=== PATIENT | female | born 1930 | race African-American/Black ===

== ENCOUNTER 2017-06-09 09:48 | Inpatient (IN) | payer MEDICARE, OTHER ==
[2017-06-09 10:36] LABS: ADD MAN DIFF? NO
[2017-06-09 10:40] LABS: ABNORMAL IP MESSAGE 1; BASOPHILS % 0.2 % (0.0-2.0); EOSINOPHILS # 0.2 10^3/ul (0.0-0.5); EOSINOPHILS % 1.4 % (0.0-7.0); HEMATOCRIT 25.3 % (37.0-47.0); HEMOGLOBIN 8.4 g/dl (12.0-16.0); LYMPHOCYTES # 2.2 10^3/ul (0.8-2.9); LYMPHOCYTES % 14.1 % (15.0-51.0); MEAN CORPUSCULAR HEMOGLOBIN 32.9 pg (29.0-33.0); MEAN CORPUSCULAR HGB CONC 33.2 g/dl (32.0-37.0); MEAN CORPUSCULAR VOLUME 99.2 fl (82.0-101.0); MEAN PLATELET VOLUME 9.6 fl (7.4-10.4); MONOCYTES % 13.1 % (0.0-11.0); NEUTROPHIL # 10.9 10^3/ul (1.6-7.5); NEUTROPHILS % 70.5 % (39.0-77.0); PLATELET COUNT 439 10^3/UL (140-415); RED BLOOD COUNT 2.55 10^6/ul (4.20-5.40); RED CELL DISTRIBUTION WIDTH 13.3 % (11.5-14.5)
[2017-06-09 10:40] LABS: WHITE BLOOD COUNT 15.5 10^3/ul (4.8-10.8)
[2017-06-09 10:44] LABS: POSITIVE DIFF @See below
[2017-06-09 10:53] LABS: LACTIC ACID 1.5 mmol/L (0.5-2.0)
[2017-06-09 10:59] LABS: ALANINE AMINOTRANSFERASE 27 IU/L (13-69); ALBUMIN 3.5 g/dl (3.3-4.9); ALBUMIN/GLOBULIN RATIO 0.87; ALKALINE PHOSPHATASE 112 IU/L (42-121); ANION GAP 11 (8-16); ASPARTATE AMINO TRANSFERASE 26 IU/L (15-46); BLOOD UREA NITROGEN 34 mg/dl (7-20); CALCIUM 9.2 mg/dl (8.4-10.2); CARBON DIOXIDE 28 mmol/L (21-31); CHLORIDE 100 mmol/L (97-110); CREATININE 1.16 mg/dl (0.44-1.00); GLUCOSE 114 mg/dl (70-220); POTASSIUM 4.8 mmol/L (3.5-5.1); SODIUM 134 mmol/L (135-144); TOTAL PROTEIN 7.5 g/dl (6.1-8.1)
[2017-06-09 11:04] LABS: INR 1.11; PROTIME 14.5 Sec (11.9-14.9); PT RATIO 1.1
[2017-06-09 11:05] LABS: PARTIAL THROMBOPLASTIN TIME 30.9 Sec (25.0-35.0)
[2017-06-09] MEDS: CEFEPIME 2GM/50 ML (PMX) 50 ML IVPB (11:19)
[2017-06-09] MEDS: SODIUM CHLORIDE 0.9% 1L BAG IV* (11:20)
[2017-06-09] MEDS ORDERED: ACETAMINOPHEN 325 MG TAB PO (12:00)
[2017-06-09] MEDS ORDERED: ONDANSETRON 4 MG INJ IV (12:00)
[2017-06-09] MEDS: VANCOMYCIN 1 GM (PMX) 250 ML IVPB (12:23)
[2017-06-09 12:37] LABS: ADD UMIC YES; UR ASCORBIC ACID 40 mg/dL (NEGATIVE); UR BACTERIA FEW /HPF (NONE SEEN); UR BILIRUBIN (Dip) NEGATIVE (NEGATIVE); UR BLOOD (Dip) 3+ mg/dL (NEGATIVE); UR BUDDING YEAST MANY /HPF (NONE SEEN); UR CLARITY CLOUDY (CLEAR); UR COLOR AMBER (YELLOW); UR GLUCOSE (Dip) NEGATIVE (NEGATIVE); UR KETONES (Dip) NEGATIVE (NEGATIVE); UR LEUKOCYTE ESTERASE (Dip) 3+ Leu/ul (NEGATIVE); UR MUCUS FEW /HPF (NONE SEEN); UR NITRITE (Dip) NEGATIVE (NEGATIVE); UR NONSQUAMOUS EPITHELIAL CELL 1 /HPF (NONE SEEN); UR RBC > 182 /HPF (0-5); UR SPECIFIC GRAVITY (Dip) 1.013 (1.003-1.030); UR SQUAMOUS EPITHELIAL CELL FEW /HPF (FEW); UR TOTAL PROTEIN (Dip) 1+ mg/dl (NEGATIVE); UR UROBILINOGEN (Dip) NEGATIVE (NEGATIVE); UR WBC 129 /HPF (0-5)
[2017-06-09 13:22] LABS: ERYTHROCYTE SEDIMENTATION RATE 135 mm/Hr (0-30)
[2017-06-09 14:55] LABS: LACTIC ACID 1.4 mmol/L (0.5-2.0)
[2017-06-09] MEDS ORDERED: VANCOMYCIN IV PER PHARMACY XX (16:30)
[2017-06-09] MEDS ORDERED: ACETAMINOPHEN 325 MG TAB GTB (16:30)
[2017-06-09] MEDS ORDERED: traMADol 50 MG TAB GTB (16:30)
[2017-06-09] MEDS ORDERED: PENDING SANTYL ORDER FOR WOUND CARE XX (17:00)
[2017-06-09] MEDS: SOD CHLORIDE 0.9% 1,000 ML IV (17:14)
[2017-06-09 18:00] LABS: LACTIC ACID 1.3 mmol/L (0.5-2.0)
[2017-06-09] MEDS ORDERED: FERROUS SULFATE (EC) 325 MG TAB PO (21:00)
[2017-06-09] MEDS ORDERED: DOXERCALCIFEROL 0.5 MCG GTB (21:00)
[2017-06-09] MEDS ORDERED: NON-FORMULARY/PATIENT OWN MED (Protein Supplement (Promod) 30 ML) PO (21:00)
[2017-06-09] MEDS ORDERED: DIVALPROEX (EC) 250 MG TAB PO (21:00)
[2017-06-09] MEDS: FERROUS SULFATE 60 MG/ML 5ML CUP GTB (21:35)
[2017-06-09] MEDS: MEMANTINE 10 MG TAB GTB (21:35)
[2017-06-09] MEDS: DOCUSATE SODIUM 10 MG/ML (10ML CUP) GTB (21:35)
[2017-06-09] MEDS: DONEPEZIL 10 MG TAB GTB (21:35)
[2017-06-09] MEDS: FLUCONAZOLE 200 MG/NS (PMX) 100 ML IVPB (21:35)
[2017-06-09] MEDS: ATORVASTATIN 20 MG TAB PO (21:35)
[2017-06-09] MEDS: PIPER-TAZO 2.25 GM (PMX) 50 ML IVPB (23:18)
[2017-06-09] MEDS: DIVALPROEX SPRINKLE 125 MG CAP GTB (23:19)
[2017-06-10] MEDS: SOD CHLORIDE 0.9% 1,000 ML IV ×2 (02:30→05:45)
[2017-06-10] MEDS: PIPER-TAZO 2.25 GM (PMX) 50 ML IVPB ×3 (05:45→21:34)
[2017-06-10 06:07] LABS: ADD MAN DIFF? NO
[2017-06-10 06:39] LABS: INR 1.23; PROTIME 15.7 Sec (11.9-14.9); PT RATIO 1.2
[2017-06-10 07:01] LABS: ANION GAP 9 (8-16); BLOOD UREA NITROGEN 29 mg/dl (7-20); CARBON DIOXIDE 26 mmol/L (21-31); CHLORIDE 108 mmol/L (97-110); GLUCOSE 116 mg/dl (70-220); MAGNESIUM 1.8 mg/dl (1.7-2.5); POTASSIUM 4.6 mmol/L (3.5-5.1); SODIUM 138 mmol/L (135-144)
[2017-06-10 07:44] LABS: CALCIUM 8.6 mg/dl (8.4-10.2)
[2017-06-10 08:23] LABS: ABNORMAL IP MESSAGE 1; BASOPHILS % 0.2 % (0.0-2.0); EOSINOPHILS # 0.3 10^3/ul (0.0-0.5); EOSINOPHILS % 2.4 % (0.0-7.0); HEMATOCRIT 25.4 % (37.0-47.0); HEMOGLOBIN 8.3 g/dl (12.0-16.0); LYMPHOCYTES # 1.7 10^3/ul (0.8-2.9); LYMPHOCYTES % 13.9 % (15.0-51.0); MEAN CORPUSCULAR HEMOGLOBIN 33.1 pg (29.0-33.0); MEAN CORPUSCULAR HGB CONC 32.7 g/dl (32.0-37.0); MEAN CORPUSCULAR VOLUME 101.2 fl (82.0-101.0); MEAN PLATELET VOLUME 9.3 fl (7.4-10.4); MONOCYTE # 1.6 10^3/ul (0.3-0.9); MONOCYTES % 12.9 % (0.0-11.0); NEUTROPHIL # 8.6 10^3/ul (1.6-7.5); NEUTROPHILS % 70.2 % (39.0-77.0); PLATELET COUNT 426 10^3/UL (140-415); RED BLOOD COUNT 2.51 10^6/ul (4.20-5.40); RED CELL DISTRIBUTION WIDTH 13.2 % (11.5-14.5)
[2017-06-10 08:23] LABS: WHITE BLOOD COUNT 12.3 10^3/ul (4.8-10.8)
[2017-06-10 08:29] LABS: POSITIVE DIFF @See below
[2017-06-10] MEDS: FERROUS SULFATE 60 MG/ML 5ML CUP GTB ×3 (08:46→21:34)
[2017-06-10] MEDS: DOCUSATE SODIUM 10 MG/ML (10ML CUP) GTB ×2 (08:46→21:34)
[2017-06-10] MEDS: ASPIRIN 81 MG TAB GTB (08:47)
[2017-06-10] MEDS: DIVALPROEX SPRINKLE 125 MG CAP GTB ×2 (08:47→21:34)
[2017-06-10] MEDS: MULTIVITAMINS THERAPEUTIC TAB GTB (08:47)
[2017-06-10] MEDS: ASCORBIC ACID 250 MG TAB GTB (08:47)
[2017-06-10] MEDS: MEMANTINE 10 MG TAB GTB ×2 (08:47→21:34)
[2017-06-10] MEDS: FOLIC ACID 1 MG TAB GTB (08:48)
[2017-06-10] MEDS: CALCIUM CARBONATE 1.25 GM TAB GTB (08:48)
[2017-06-10] MEDS: VANCOMYCIN 500MG/NS (PMX) 100 ML IVPB (16:45)
[2017-06-10] MEDS: FLUCONAZOLE 200 MG/NS (PMX) 100 ML IVPB (17:48)
[2017-06-10] MEDS: ALENDRONATE 70 MG TAB PO (19:00)
[2017-06-10] MEDS: ATORVASTATIN 20 MG TAB PO (21:34)
[2017-06-10] MEDS: DONEPEZIL 10 MG TAB GTB (21:34)
[2017-06-11] MEDS: PIPER-TAZO 2.25 GM (PMX) 50 ML IVPB ×3 (06:11→21:29)
[2017-06-11 07:11] LABS: ADD MAN DIFF? NO
[2017-06-11 07:21] LABS: BASOPHILS % 0.2 % (0.0-2.0); EOSINOPHILS # 0.4 10^3/ul (0.0-0.5); EOSINOPHILS % 3.6 % (0.0-7.0); HEMATOCRIT 24.5 % (37.0-47.0); LYMPHOCYTES # 1.7 10^3/ul (0.8-2.9); LYMPHOCYTES % 17.1 % (15.0-51.0); MEAN CORPUSCULAR HEMOGLOBIN 33.1 pg (29.0-33.0); MEAN CORPUSCULAR HGB CONC 32.7 g/dl (32.0-37.0); MEAN CORPUSCULAR VOLUME 101.2 fl (82.0-101.0); MEAN PLATELET VOLUME 9.7 fl (7.4-10.4); MONOCYTE # 1.1 10^3/ul (0.3-0.9); MONOCYTES % 11.3 % (0.0-11.0); NEUTROPHIL # 6.6 10^3/ul (1.6-7.5); NEUTROPHILS % 67.2 % (39.0-77.0); PLATELET COUNT 411 10^3/UL (140-415); RED BLOOD COUNT 2.42 10^6/ul (4.20-5.40); RED CELL DISTRIBUTION WIDTH 13.3 % (11.5-14.5)
[2017-06-11 07:21] LABS: WHITE BLOOD COUNT 9.8 10^3/ul (4.8-10.8)
[2017-06-11 07:37] LABS: ANION GAP 12 (8-16); BLOOD UREA NITROGEN 25 mg/dl (7-20); CALCIUM 8.7 mg/dl (8.4-10.2); CARBON DIOXIDE 25 mmol/L (21-31); CHLORIDE 108 mmol/L (97-110); CREATININE 1.06 mg/dl (0.44-1.00); GLUCOSE 88 mg/dl (70-220); POTASSIUM 4.8 mmol/L (3.5-5.1); SODIUM 140 mmol/L (135-144)
[2017-06-11] MEDS: ASCORBIC ACID 250 MG TAB GTB (08:43)
[2017-06-11] MEDS: DOCUSATE SODIUM 10 MG/ML (10ML CUP) GTB ×2 (08:43→21:16)
[2017-06-11] MEDS: DIVALPROEX SPRINKLE 125 MG CAP GTB ×2 (08:43→21:17)
[2017-06-11] MEDS: FOLIC ACID 1 MG TAB GTB (08:43)
[2017-06-11] MEDS: FERROUS SULFATE 60 MG/ML 5ML CUP GTB ×3 (08:43→21:16)
[2017-06-11] MEDS: MEMANTINE 10 MG TAB GTB ×2 (08:43→21:17)
[2017-06-11] MEDS: MULTIVITAMINS THERAPEUTIC TAB GTB (08:44)
[2017-06-11] MEDS: CALCIUM CARBONATE 1.25 GM TAB GTB (08:47)
[2017-06-11] MEDS: ASPIRIN 81 MG TAB GTB (08:53)
[2017-06-11] MEDS ORDERED: MUPIROCIN 2% 22 GM OINT TOP (10:00)
[2017-06-11] MEDS: MUPIROCIN 2% 22 GM OINT TOP ×2 (12:10→21:17)
[2017-06-11] MEDS: ENOXAPARIN 30 MG/0.3 ML SYG SC (14:30)
[2017-06-11] MEDS: LACTOBACILLUS RHAMNOSUS CAP GTB ×2 (14:30→21:16)
[2017-06-11] MEDS: VANCOMYCIN 500MG/NS (PMX) 100 ML IVPB (16:10)
[2017-06-11] MEDS: FLUCONAZOLE 200 MG/NS (PMX) 100 ML IVPB (17:54)
[2017-06-11] MEDS: DONEPEZIL 10 MG TAB GTB (21:16)
[2017-06-11] MEDS: ATORVASTATIN 20 MG TAB PO (21:16)
[2017-06-12] MEDS ORDERED: COLLAGENASE 30 GM TUBE TOP (02:30)
[2017-06-12] MEDS: PIPER-TAZO 2.25 GM (PMX) 50 ML IVPB ×2 (06:12→14:41)
[2017-06-12 07:12] LABS: ADD MAN DIFF? NO
[2017-06-12 07:15] LABS: WHITE BLOOD COUNT 9.3 10^3/ul (4.8-10.8)
[2017-06-12 07:15] LABS: BASOPHILS % 0.3 % (0.0-2.0); EOSINOPHILS # 0.3 10^3/ul (0.0-0.5); EOSINOPHILS % 3.4 % (0.0-7.0); HEMATOCRIT 25.8 % (37.0-47.0); HEMOGLOBIN 8.3 g/dl (12.0-16.0); LYMPHOCYTES # 1.8 10^3/ul (0.8-2.9); LYMPHOCYTES % 18.7 % (15.0-51.0); MEAN CORPUSCULAR HEMOGLOBIN 32.5 pg (29.0-33.0); MEAN CORPUSCULAR HGB CONC 32.2 g/dl (32.0-37.0); MEAN CORPUSCULAR VOLUME 101.2 fl (82.0-101.0); MEAN PLATELET VOLUME 9.8 fl (7.4-10.4); NEUTROPHIL # 6.2 10^3/ul (1.6-7.5); NEUTROPHILS % 66.2 % (39.0-77.0); PLATELET COUNT 428 10^3/UL (140-415); RED BLOOD COUNT 2.55 10^6/ul (4.20-5.40); RED CELL DISTRIBUTION WIDTH 13.3 % (11.5-14.5)
[2017-06-12 07:40] LABS: HEMOGLOBIN A1C 5.3 % (0-5.9)
[2017-06-12 08:05] LABS: ALANINE AMINOTRANSFERASE 21 IU/L (13-69); ALBUMIN 3.1 g/dl (3.3-4.9); ALBUMIN/GLOBULIN RATIO 0.73; ALKALINE PHOSPHATASE 108 IU/L (42-121); ANION GAP 12 (8-16); ASPARTATE AMINO TRANSFERASE 29 IU/L (15-46); BLOOD UREA NITROGEN 21 mg/dl (7-20); CALCIUM 9.2 mg/dl (8.4-10.2); CARBON DIOXIDE 25 mmol/L (21-31); CHLORIDE 105 mmol/L (97-110); CREATININE 1.02 mg/dl (0.44-1.00); GLUCOSE 108 mg/dl (70-220); POTASSIUM 4.5 mmol/L (3.5-5.1); SODIUM 137 mmol/L (135-144); TOTAL PROTEIN 7.3 g/dl (6.1-8.1)
[2017-06-12 08:08] LABS: VALPROATE 28 ug/ml (50-100)
[2017-06-12] MEDS: MUPIROCIN 2% 22 GM OINT TOP ×2 (08:51→21:07)
[2017-06-12] MEDS: LACTOBACILLUS RHAMNOSUS CAP GTB ×2 (08:52→21:03)
[2017-06-12] MEDS: DIVALPROEX SPRINKLE 125 MG CAP GTB ×2 (08:52→21:01)
[2017-06-12] MEDS: CALCIUM CARBONATE 1.25 GM TAB GTB (08:52)
[2017-06-12] MEDS: MULTIVITAMINS THERAPEUTIC TAB GTB (08:52)
[2017-06-12] MEDS: MEMANTINE 10 MG TAB GTB ×2 (08:52→21:03)
[2017-06-12] MEDS: FOLIC ACID 1 MG TAB GTB (08:52)
[2017-06-12] MEDS: DOCUSATE SODIUM 10 MG/ML (10ML CUP) GTB ×2 (08:53→21:01)
[2017-06-12] MEDS: ASPIRIN 81 MG TAB GTB (08:53)
[2017-06-12] MEDS: ASCORBIC ACID 250 MG TAB GTB (08:53)
[2017-06-12] MEDS: FERROUS SULFATE 60 MG/ML 5ML CUP GTB ×3 (08:53→21:01)
[2017-06-12] MEDS: COLLAGENASE 30 GM TUBE TOP (08:54)
[2017-06-12] MEDS: ENOXAPARIN 30 MG/0.3 ML SYG SC (09:03)
[2017-06-12 16:19] LABS: VANCOMYCIN,TROUGH 6.6 ug/ml (10.0-20.0)
[2017-06-12] MEDS: VANCOMYCIN 500MG/NS (PMX) 100 ML IVPB (16:37)
[2017-06-12] MEDS: FLUCONAZOLE 200 MG/NS (PMX) 100 ML IVPB (17:25)
[2017-06-12] MEDS: CEFEPIME 1GM/50 ML (PMX) 50 ML IVPB (18:46)
[2017-06-12] MEDS: FOSFOMYCIN 3 GM PACKET PO ×2 (19:00→21:47)
[2017-06-12] MEDS: ATORVASTATIN 20 MG TAB PO (21:02)
[2017-06-12] MEDS: DONEPEZIL 10 MG TAB GTB (21:02)
[2017-06-12] MEDS: metroNIDAZOLE 500 MG/NS (PMX) 100 ML IVPB (21:12)
[2017-06-13] MEDS: metroNIDAZOLE 500 MG/NS (PMX) 100 ML IVPB ×3 (05:40→22:22)
[2017-06-13] MEDS: VANCOMYCIN 500MG/NS (PMX) 100 ML IVPB ×2 (06:41→18:07)
[2017-06-13] MEDS: FERROUS SULFATE 60 MG/ML 5ML CUP GTB ×3 (08:31→22:18)
[2017-06-13] MEDS: DIVALPROEX SPRINKLE 125 MG CAP GTB ×2 (08:31→22:18)
[2017-06-13] MEDS: MEMANTINE 10 MG TAB GTB ×2 (08:32→22:18)
[2017-06-13] MEDS: ASPIRIN 81 MG TAB GTB (08:32)
[2017-06-13] MEDS: CALCIUM CARBONATE 1.25 GM TAB GTB (08:32)
[2017-06-13] MEDS: FOLIC ACID 1 MG TAB GTB (08:32)
[2017-06-13] MEDS: LACTOBACILLUS RHAMNOSUS CAP GTB ×2 (08:32→22:19)
[2017-06-13] MEDS: MULTIVITAMINS THERAPEUTIC TAB GTB (08:32)
[2017-06-13] MEDS: ASCORBIC ACID 250 MG TAB GTB (08:32)
[2017-06-13] MEDS: MUPIROCIN 2% 22 GM OINT TOP ×2 (08:33→22:22)
[2017-06-13] MEDS: DOCUSATE SODIUM 10 MG/ML (10ML CUP) GTB ×2 (08:33→22:18)
[2017-06-13] MEDS: ENOXAPARIN 30 MG/0.3 ML SYG SC (08:34)
[2017-06-13] MEDS: COLLAGENASE 30 GM TUBE TOP (08:35)
[2017-06-13] MEDS: CEFEPIME 1GM/50 ML (PMX) 50 ML IVPB (17:12)
[2017-06-13] MEDS: ATORVASTATIN 20 MG TAB PO (22:18)
[2017-06-13] MEDS: FLUCONAZOLE 200 MG/NS (PMX) 100 ML IVPB (22:18)
[2017-06-13] MEDS: DONEPEZIL 10 MG TAB GTB (22:19)
[2017-06-14] MEDS: metroNIDAZOLE 500 MG/NS (PMX) 100 ML IVPB ×2 (04:27→14:48)
[2017-06-14] MEDS: VANCOMYCIN 500MG/NS (PMX) 100 ML IVPB ×2 (04:28→17:46)
[2017-06-14 07:11] LABS: CREATININE 0.91 mg/dl (0.44-1.00)
[2017-06-14 07:11] LABS: BLOOD UREA NITROGEN 18 mg/dl (7-20)
[2017-06-14] MEDS: DOCUSATE SODIUM 10 MG/ML (10ML CUP) GTB (09:05)
[2017-06-14] MEDS: FERROUS SULFATE 60 MG/ML 5ML CUP GTB ×2 (09:05→14:48)
[2017-06-14] MEDS: ENOXAPARIN 30 MG/0.3 ML SYG SC (09:06)
[2017-06-14] MEDS: MULTIVITAMINS THERAPEUTIC TAB GTB (09:07)
[2017-06-14] MEDS: FOLIC ACID 1 MG TAB GTB (09:07)
[2017-06-14] MEDS: ASCORBIC ACID 250 MG TAB GTB (09:07)
[2017-06-14] MEDS: ASPIRIN 81 MG TAB GTB (09:07)
[2017-06-14] MEDS: DIVALPROEX SPRINKLE 125 MG CAP GTB (09:07)
[2017-06-14] MEDS: MEMANTINE 10 MG TAB GTB (09:07)
[2017-06-14] MEDS: CALCIUM CARBONATE 1.25 GM TAB GTB (09:07)
[2017-06-14] MEDS: LACTOBACILLUS RHAMNOSUS CAP GTB (09:07)
[2017-06-14] MEDS: MUPIROCIN 2% 22 GM OINT TOP (09:08)
[2017-06-14] MEDS: COLLAGENASE 30 GM TUBE TOP (09:09)
[2017-06-14] MEDS: CEFEPIME 1GM/50 ML (PMX) 50 ML IVPB (17:00)
== END 2017-06-14 18:03 | disposition hospice, home (50) | DRG 853 ==
LOC: E/R 09:48 → PP2 12:27
PROC: 0JBQ0ZZ Excision of Right Foot Subcutaneous Tissue and Fascia, Open Approach (ICD-10-PCS; principal; 2017-06-10)
DX: A41.9 Sepsis, unspecified organism (principal); L89.894 Pressure ulcer of other site, stage 4; E43 Unspecified severe protein-calorie malnutrition; R40.3 Persistent vegetative state; R53.2 Functional quadriplegia; K52.1 Toxic gastroenteritis and colitis; F03.90 Unspecified dementia, unspecified severity, without behavioral disturbance, psychotic disturbance, mood disturbance, and anxiety; G12.29 Other motor neuron disease; N39.0 Urinary tract infection, site not specified; M86.672 Other chronic osteomyelitis, left ankle and foot; M86.671 Other chronic osteomyelitis, right ankle and foot; L03.116 Cellulitis of left lower limb; L03.115 Cellulitis of right lower limb; Z68.1 Body mass index [BMI] 19.9 or less, adult; E78.5 Hyperlipidemia, unspecified; E21.3 Hyperparathyroidism, unspecified; N18.9 Chronic kidney disease, unspecified; M81.0 Age-related osteoporosis without current pathological fracture; I12.9 Hypertensive chronic kidney disease with stage 1 through stage 4 chronic kidney disease, or unspecified chronic kidney disease; G40.909 Epilepsy, unspecified, not intractable, without status epilepticus; E61.1 Iron deficiency; M24.50 Contracture, unspecified joint; R13.10 Dysphagia, unspecified; T36.8X5A Adverse effect of other systemic antibiotics, initial encounter; Y92.238 Other place in hospital as the place of occurrence of the external cause; F01.50 Vascular dementia, unspecified severity, without behavioral disturbance, psychotic disturbance, mood disturbance, and anxiety; Z85.038 Personal history of other malignant neoplasm of large intestine; Z22.322 Carrier or suspected carrier of Methicillin resistant Staphylococcus aureus
CPT/HCPCS: 36415; 71045; 73630-50; 80048; 80053; 80164; 80202; 81001; 82565; 83036; 83605; 83735; 84443; 84520; 85025; 85610; 85651; 85730; 86140; 87040; 87070; 87075; 87081; 87086; 93005; 96374; 96375; 97163; 99285-25